=== PATIENT | female | born 1990 | race Caucasian/White ===

== ENCOUNTER 2018-05-10 00:02 | Inpatient (IN) | payer BC, OTHER ==
[2018-05-10] MEDS ORDERED: ONDANSETRON HCL/PF 2 MG/ML VIAL IV PRN ×2 (00:05→08:06)
[2018-05-10] MEDS ORDERED: MISOPROSTOL 100 MCG TABLET VG PRN (00:05)
[2018-05-10] MEDS ORDERED: RINGER'S SOLUTION,LACTATED 1,000 ML IV ONE (00:05)
[2018-05-10] MEDS ORDERED: OXYTOCIN/DEXTROSE 5%-WATER 30 UNITS/500 ML BAG IV ONE ×2 (00:05→16:59)
[2018-05-10] MEDS ORDERED: PENICILLIN G POTASSIUM 5 MILLIONUNT in DEXTROSE 5 % IN WATER 100 ML IV ONE ×2 (00:05)
[2018-05-10] MEDS: PENICILLIN G POTASSIUM 2.5 MILLIONUNT in DEXTROSE 5 % IN WATER 100 ML IV SCH ×8 (04:29→15:57)
[2018-05-10] MEDS: DEXTROSE 5%-LACTATED RINGERS 1,000 ML IV PRN ×2 (06:17→15:06)
[2018-05-10] MEDS ORDERED: NALOXONE HCL 1 MG/1 ML SYRG IV PRN (08:06)
[2018-05-10] MEDS ORDERED: BUPIVACAINE HCL/0.9 % NACL/PF 250 ML EP PRN (08:06)
--- NOTE | 2018-05-10 08:11 | ANES ---
Anesthesia Pre Procedure Eval Vitals/Labs: Last Vital Signs Temp 36.8 C 05/10/18 00:20 Pulse 66 05/10/18 00:20 Resp 14 05/10/18 00:20 BP 114/65 05/10/18 00:20 Pulse Ox 98 05/10/18 00:20 HOME MEDICATIONS Vits96/Iron Fum/Folic [ S] 1 tab PO DAILY 12/08/13 [Last Taken 12/06/13 21:00 one] Allergies/Adverse Reactions: Allergies Allergy/AdvReac Type Severity Reaction Status Date / Time No Known Allergies Allergy Verified 05/10/18 00:08 - Planned Procedure Planned Procedure: MEDICAL INDUCTION Medication List Reviewed:: Yes Allergies Verified: Yes Medical History (Last Reviewed 05/10/18 @ 08:10 by Wilfred Hilton CRNA) Threatened labor (Acute) No pertinent past medical history Surgical History (Last Reviewed 05/10/18 @ 08:10 by Wilfred Hilton CRNA) No pertinent past surgical history Family History (Last Reviewed 05/10/18 @ 08:10 by Wilfred Hilton CRNA) Mother Alive and well Father Alive and well Grandfather , Maternal Alzheimers disease Grandmother Alzheimers disease Maternal - Family Anesthesia History Family History:: no untoward family reactions to anesthesia, no familial bleeding tendencies, no family history of clotting disorders, no family history of premature - Airway/Neck/Teeth Within Normal Limits:: Yes Teeth Condition: intact Mallampatti Score: 2 Thyromental (T-M) distance: > 6 cm Mandibulo Hyoid distance: > 3 cm - Respiratory Respiratory Physical: lungs clear Smoking Status: Former smoker Discussed smoking cessation including day of surgery: No Sleep Apnea currently treated: No Sleep Apnea by current assessment: No - Cardiovascular Tolerate Activity: Good Heart Sounds: S1 & S2 - Anesthesia Assessment and Plan ASA Class: PS, II, E Anesthesia Type Plan: Epidural - CSE for labor analgesia
[2018-05-10] MEDS ORDERED: fentaNYL CITRATE/PF 50 MCG/ML AMPUL IT SCH (08:15)
--- NOTE | 2018-05-10 08:27 | ANES ---
Post Anesthesia Discharge - Transfer of Care Transfer of Care handoff given to nurse: Yes - Discharge from PACU Discharge from PACU when meets criteria: Yes - Comfortable after CSE
--- NOTE | 2018-05-10 08:28 | ANES ---
Anesthesia Procedure Note Procedure Note: ANESTHESIA PROCEDURE NOTE Date of Procedure: 05/10/2018 Time of procedure: 10. Performed by: Wilfred Hilton CRNA, MSN Mounter Hand: Shani Bermudez RN. Preprocedure diagnosis: Active labor, labor pain. Post procedure diagnosis: Same. Procedure:Epidural for labor analgesia L3 4. Indications: Labor pain. Findings: See below. Details of the procedure: The patient was placed on the side of the bed in sitting positionand prepped with DuraPrep then draped in a sterile fashion. Lidocaine 1% was infiltrated to the skin and subcutaneous tissues at the level of the L3 4 interspace. An 18-gauge Touhy needle was used to approach the epidural space with loss of resistance technique. Once loss of resistance was achieved a 27-gauge spinal needle was passed through the epidural needle and CSF was contacted. After CSF returned, 20 mcg of fentanyl was injected in the spinal needle was removed the epidural catheter was then threaded approximately 4 cm in the epidural needle was removed. The catheter was taped in place and after careful aspiration 3 mL of 1.5% lidocaine with 1-200,000 epinephrine was injected without change in maternal heart rate or sensorium. . EBL: Minimal. Fluids: N/A. Specimen: N/A. Post procedure condition: The patient tolerated the procedure well with. Good Relief. No complications were noted. Thank you for this consultation. Wilfred Hilton CRNA, MSN
--- NOTE | 2018-05-10 09:20 | ANES ---
Post Anesthesia Assessment - Vital Signs Vitals: Last Vital Signs Temp 36.6 C 05/10/18 08:34 Pulse 65 05/10/18 08:34 Resp 18 05/10/18 08:34 BP 111/70 05/10/18 08:34 Pulse Ox 97 05/10/18 08:34 Airway Patency: Normal - Mental Status Level Of Consciousness: Awake, Alert - Pain Level Pain Score: 0 - N/V Assessment Nausea/Vomiting Presence: None Dehydration:: No
--- NOTE | 2018-05-10 13:29 | HP ---
Chief Complaint - Chief Complaint Date of Service: 05/10/18 Time of Service: 13:29 Chief Complaint: elective induction of labor History of Present Illness: 28 yo at 39 6/7 weeks presents for elective induction of labor. This without complications. Rh positive Rubella immune GBS positive Medical History (Last Reviewed 05/10/18 @ 14:50 by Juan Luis Villatoro DO) Threatened labor (Acute) No pertinent past medical history Surgical History: Surgical History (Last Reviewed 05/10/18 @ 14:50 by Juan Luis Villatoro DO) No pertinent past surgical history Family History: Family History (Last Reviewed 05/10/18 @ 14:50 by Juan Luis Villatoro DO) Mother Alive and well Father Alive and well Grandfather , Maternal Alzheimers disease Grandmother Alzheimers disease Maternal Social History: Preferred Language Jamaican Smoking Status Former smoker (Last Updated 05/07/18 @ 16:39 by Juan Luis Villatoro DO) No Social History Section defined Review Of Systems (GEN) - Review of Systems Generalized/Overall Review: Present: No Symptoms Reported EENTM: Present: No Symptoms Reported Respiratory: Present: No Symptoms Reported Cardiac: Present: No Symptoms Reported Abdominal: Present: No Symptoms Reported Genitourinary: Present: No Symptoms Reported Musculoskeletal: Present: Back Pain - mild Neurological: Present: No Symptoms Reported Skin: Present: No Symptoms Reported Endocrine: Present: No Symptoms Reported Immunizations: IMMUNIZATION HX History of Influenza Vaccine No Hx Pneumococcal Vaccination No Allergies/Adverse Reactions: Allergies Allergy/AdvReac Type Severity Reaction Status Date / Time No Known Allergies Allergy Verified 05/10/18 00:08 Home Medications: HOME MEDICATIONS Vits96/Iron Fum/Folic [ S] 1 tab PO DAILY 12/08/13 [Last Taken 12/06/13 21:00 one] Exam - Exam Vital Signs: Vital Signs - Last Taken Temp 36.6 C 05/10/18 08:34 Pulse 65 05/10/18 08:34 Resp 18 05/10/18 08:34 BP 111/70 05/10/18 08:34 Pulse Ox 97 05/10/18 08:34 Constitutional: Present: Alert, Oriented x3, Cooperative ENT Exam: Present: hearing grossly normal Respiratory: Present: lungs clear, no respiratory distress Cardiovascular/Chest: Present: regular rate, rhythm, no edema Abdomen: Present: soft, nontender, no rebound tenderness, other - gravid /Rectal: Present: Other - cervix 2/50/-2 Extremity: Present: no pedal edema, no calf tenderness Skin Exam: Present: normal color, warm/dry, no cyanosis Neurologic: Present: alert, normal mood/affect, oriented x 3 Appearance: Present: appropriate appearance, appropriate insight Eye contact: Present: cooperative, good eye contact, normal speech Thoughts: Present: normal thought pattern Assessment/Plan - Assessment/Plan (1) Encounter for induction of labor Assessment: Admit for cytotec induction of labor. IV PCN for GBS prophylaxis. Epidural and Pitocin PRN. Problem: Acute (2) Group B streptococcal carriage complicating Problem: Acute
--- NOTE | 2018-05-10 13:34 | PN ---
Progess Note - Interim Date: 05/10/18 Time: 13:29 Narrative: 05/10/18 13:29 Patient comfortable with epidural. Vitals stable. S/p cytotec 25 mcg x 1 at 0230 FHT reassuring, Contractions q 2min Cervix 4-5/75/-2, AROM clear Impression/Plan: 39 6/7wk IUP progressing well. Continue current management of labor.
--- NOTE | 2018-05-10 16:13 | PN ---
Progess Note - Interim Date: 05/10/18 Time: 15:44 Narrative: 05/10/18 15:44 Patient comfortable with epidural Vital signs stable. FHT: 140 baseline, decreased beat to beat variability with minimum accelerations. Contractions q 2-3 min Cervix: 9/100s/-2 Impression: Intrauterine at 39-6/7 weeks in labor. GBS positive- status post 5 doses of penicillin Plan: Anticipate normal spontaneous vaginal delivery soon
--- NOTE | 2018-05-10 16:57 | OR ---
Operative Report - Dictated Report Narrative: Spontaneous vaginal delivery of viable male at 1638 on 05/10/2018 with Apgars 8 and 9, weighing 3516 g in CHARLES position. Cord clamping delayed approximately 1 minute Placenta delivered complete, intact, with three vessel cord Estimated blood loss: 100 mL Anesthesia: epidural Lacerations: First-degree vaginal laceration repaired with 3-0 Vicryl Rapide
[2018-05-10] MEDS ORDERED: SENNOSIDES 8.6 MG TABLET PO PRN (16:59)
[2018-05-10] MEDS ORDERED: oxyCODONE HCL/ACETAMINOPHEN 1 TAB TABLET PO PRN (16:59)
[2018-05-10] MEDS ORDERED: HYDROCORTISONE 30 APPL TUBE TP PRN (16:59)
[2018-05-10] MEDS ORDERED: GLYCERIN/WITCH HAZEL LEAF 40 APPL BOX TP PRN (16:59)
[2018-05-10] MEDS ORDERED: BENZOCAINE/MENTHOL 81 SPRAY CAN TP PRN (16:59)
[2018-05-10] MEDS ORDERED: BISACODYL 10 MG SUPP.RECT RC PRN (16:59)
--- NOTE | 2018-05-10 17:01 | PN ---
Progess Note - Interim Date: 05/10/18 Time: 17:01 History for MU Definition: * The number of deliveries resulting in a live the patient experienced prior to current hospitalization * The previous delivery of live twins or any live multiple gestation is considered one live event. *If primagravida or nulliparous is documented select zero for the number of previous live births. Live Events: 1
[2018-05-10] MEDS: oxyCODONE HCL/ACETAMINOPHEN 1 TAB TABLET PO PRN (19:55)
[2018-05-10] MEDS: IBUPROFEN 800 MG TABLET PO PRN (19:56)
[2018-05-11] MEDS: oxyCODONE HCL/ACETAMINOPHEN 1 TAB TABLET PO PRN ×2 (00:43→05:03)
[2018-05-11] MEDS: DOCUSATE SODIUM 100 MG CAPSULE PO SCH ×2 (00:44→08:47)
[2018-05-11] MEDS: IBUPROFEN 800 MG TABLET PO PRN ×3 (05:03→19:41)
--- NOTE | 2018-05-11 10:41 | PN ---
Subjective - Date and Time Seen Date: 05/11/18 Time: 10:40 Objective - Vitals Vitals: Last Vital Signs Temp 36.6 C 05/11/18 10:00 Pulse 96 05/11/18 10:00 Resp 20 05/11/18 10:00 BP 114/71 05/11/18 10:00 Pulse Ox 97 05/11/18 10:00 Patient denies complaints. Lochia wnl Abdomen - soft, nontender Uterus - firm, at umbilicus - 1 No calf tenderness Impression: day #1 - s/p spontaneous vaginal delivery. Plan: Continue routine care Cauti Physician Documentation - Urinary Catheter Management Urethral (Engel) Date of Insertion: 05/10/18 Time of Insertion: 08:50 Assessment/Plan - Problems/Diagnosis (1) Encounter for induction of labor Problem: Acute (2) Group B streptococcal carriage complicating Problem: Acute
[2018-05-12] MEDS: IBUPROFEN 800 MG TABLET PO PRN ×2 (01:45→07:51)
[2018-05-12] MEDS: DOCUSATE SODIUM 100 MG CAPSULE PO SCH (07:52)
--- NOTE | 2018-05-12 08:55 | PN ---
Subjective - Date and Time Seen Date: 05/12/18 Time: 08:55 Objective - Vitals Vitals: Last Vital Signs Temp 36.7 C 05/12/18 06:00 Pulse 67 05/12/18 06:00 Resp 16 05/12/18 06:00 BP 93/53 05/12/18 06:00 Pulse Ox 99 05/12/18 06:00 Patient denies complaints. Bottle feeding Lochia wnl Abdomen - soft, nontender Uterus - firm, at umbilicus - 2 No calf tenderness Impression: day #2 - s/p spontaneous vaginal delivery. Plan: Routine discharge instructions Cauti Physician Documentation - Urinary Catheter Management Urethral (Engel) Date of Insertion: 05/10/18 Time of Insertion: 08:50 Assessment/Plan - Problems/Diagnosis (1) Encounter for induction of labor Problem: Acute (2) Group B streptococcal carriage complicating Problem: Acute
[2018-05-12 12:02] VITALS: BP 115/71
== END 2018-05-12 17:00 | disposition home or self-care (01) | DRG 807 ==
LOC: OB 00:02 → MS 05-11 22:20
PROVIDERS: ADMIT Obstetrics & Gynecology; ATTEND Obstetrics & Gynecology
CPT/HCPCS: 59025